=== PATIENT | male | born 1945 | race African-American/Black ===

== ENCOUNTER 2018-06-13 12:45 | Inpatient (IN) | payer BC, OTHER ==
--- NOTE | 2018-06-13 13:28 | PDOC ---
History of Present Illness - General Chief Complaint: Pain Stated Complaint: ABDOMINAL PAIN Time Seen by Provider: 06/13/18 13:10 - History of Present Illness Initial Comments: Trent Camejo is a 72yo man with a PMH of DM, CAD s/p stents, Parkinsons, and previously diagnosed umbilical hernia who presents with a "flare up" of his hernia, abdominal pain, constipation for one week, and now vomiting for 2 days. He reports that he was diagnosed with the hernia and told that he needed surgery "a long time ago" but the surgeon "never scheduled the surgery." He did not follow up as the hernia went back down. However, it has been visible for over a week now, and Mr Camejo reports that he has not had a BM for the past week. He usually has a bowel movement daily. He also endorses obstipation for at least a few days. At this point, he is unable to tolerate PO and has been vomiting for the past 2 days. He additionally reports pain at the hernia site, currently 8/10. Mr Camejo denies any fevers/chills, urinary symptoms, prior abdominal pain, chest pain, or SOB. 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 Past History - Past Medical History Allergies/Adverse Reactions: Allergies Allergy/AdvReac Type Severity Reaction Status Date / Time No Known Allergies Allergy Verified 06/13/18 13:00 CVA: No COPD: No Diabetes: Yes HTN: Yes Thyroid Disease: (PARKINSONS) - Immunization History Immunization Up to Date: Yes - Suicide/Smoking/Psychosocial Hx Smoking History: Never smoked Have you smoked in the past 12 months: No Information on smoking cessation initiated: No Hx Alcohol Use: No Drug/Substance Use Hx: No Review of Systems - Review of Systems Comments:: General: No fevers, no chills, no weight or appetite change, no malaise HEENT: No changes in vision, no changes in hearing, no congestion, no sore throat CV: No chest pain, no palpitations, no LE edema. h/o stents Pulm: No SOB, no cough, no wheezing GI: +vomiting, +constipation and obstipation 1 week, +umbilical hernia, +pain : No frequency, no urgency, no dysuria Musc: No back pain, no joint swelling, no recent injury Skin: No rash, no lesions, no erythema Endo: No excessive thirst, no heat/cold intolerance. h/o DM Heme: No unusual bruising or bleeding, no swollen glands Neuro: No syncope, no numbness/tingling, no focal weakness. h/o Parkinsons Vasc: No claudication Psych: No recent change in mood, no SI or HI *Physical Exam - Vital Signs Last Vital Signs Temp Pulse Resp BP Pulse Ox 79 18 146/90 100 06/13/18 12:55 06/13/18 12:55 06/13/18 12:55 06/13/18 13:00 - Physical Exam Comments: General: Comfortable, no acute distress HEENT: PERRL, EOMI, MMM, voice normal, normal neck ROM, no LAD Cards: RRR, no murmur appreciated Pulm: Comfortable on room air, clear to auscultation bilaterally Abd: Soft, non-distended. Midline hernia 3x3cm ~2-3cm superior to umbilicus, warm to touch, TTP. Mild LLQ pain. +BS Ext: Atraumatic. No LE edema. ROM intact. Strength 5/5 and equal bilaterally Vasc: Extremities WWP. Skin: Normal color, no rashes or lesions Neuro: A&Ox3, CN grossly intact, normal speech, motor/sensory grossly intact and symmetric Psych: Mood appropriate to situation Moderate Sedation - Procedure Monitoring Vital Signs: Procedure Monitoring Vital Signs Temperature Pulse Rate 79 06/13/18 12:55 Respiratory Rate 18 06/13/18 12:55 Blood Pressure 146/90 06/13/18 12:55 O2 Sat by Pulse Oximetry (%) 100 06/13/18 13:00 ED Treatment Course - LABORATORY CBC & Chemistry Diagram: 06/13/18 13:37 06/13/18 13:37 - RADIOLOGY Radiology Studies Ordered: Category Date Time Status ABDOMEN & PELVIS CT WITH CONTR [CT] Stat CT Scan 06/13/18 13:21 Ordered CHEST X-RAY PORTABLE* [RAD] Stat Radiology 06/13/18 13:19 Ordered Medical Decision Making - Medical Decision Making 06/13/18 13:22 Trent Camejo is a 72yo man with a PMH of DM, CAD s/p 2x stents, Parkinsons, and known umbilical hernia who presents to the ED with non-reducible hernia with constipation/obstipation for one week and vomiting with inability to tolerate PO for 2 days. The hernia is visible, warm, and TTP concerning for incarceration. - Will make attempt to reduce again at bedside w/ Dr Bingham - CBC, CMP, mag, phos. Coags and type&screen, EKG, CXR for possible OR - CT w/ IV contrast for evaluation of the hernia 06/13/18 14:38 - Labs notable for hgb 17.6. Multiple electrolyte abnormalities: Na 134, K 2.8, Cl 88, bicarb 33, BUN/Cr 47/1.9 - 40mEq potassium IV ordered - Additional 1L NS ordered for hyponatremia, hypochloremia, likely dehydration given elevated BUN and Cr - CT abd/pelvis changed to non-contrast 06/13/18 15:41 - Spoke to Dr Infante regarding surgical repair. Recommends admission, NGT, lactate. Will need cardiology evaluation given CAD - NPO - Microblog for hospital admission 06/13/18 16:10 - Spoke to Dr Prater, will accept for admission - NGT being transported from [facility], will place when available - Ancef Q8hr ordered per Dr Infante 06/13/18 17:32 - NGT placed at bedside, one attempt. Tolerated well. 500cc of grossly bilious output immediately after placement - Xray ordered to confirm NGT placement Discussed with Dr Bingham. Valerie Mohr PGY1 *DC/Admit/Observation/Transfer Diagnosis at time of Disposition: Umbilical hernia with obstruction - Discharge Dispostion Decision to Admit order: Yes - Referrals - Patient Instructions - Post Discharge Activity
[2018-06-13] MEDS ORDERED: ACETAMINOPHEN 1000 MG/100 ML VIAL (NON FORMULARY) IVPB ONE (13:39)
[2018-06-13] MEDS ORDERED: SODIUM CHLORIDE 0.9% 500 ML INFUS.BAG IV ONE ×2 (13:39→14:36)
[2018-06-13 13:45] LABS: BASO % 0.4 % (0-2.0); EOS % 0.2 % (0-4.5); HEMATOCRIT 51.6 % (35.4-49); HEMOGLOBIN 17.6 GM/dL (11.7-16.9); MCH 28.7 pg (25.7-33.7); MEAN CELL VOLUME 84.3 fl (80-96); MEAN PLT VOLUME 8.8 fl (7.5-11.1); NEUT % 65.4 % (42.8-82.8); PLATELET COUNT 172 K/MM3 (134-434); RBC 6.13 M/mm3 (4.00-5.60); WHITE BLOOD COUNT 6.8 K/mm3 (4.0-10.0)
--- NOTE | 2018-06-13 13:47 | PDOC ---
Attending Attestation - Resident Resident Name: FaniValerie - ED Attending Attestation I have performed the following: I have examined & evaluated the patient, The case was reviewed & discussed with the resident, I agree w/resident's findings & plan, Exceptions are as noted - HPI HPI: 06/13/18 16:25 This patient is a 72 year old male with PMHx of Parkinsons Disease, umbilical hernia (>10 yrs), who presents with 1 week of gradually worsening nausea, vomiting, and abdominal pain. Patient states that his abdominal pain is around his hernia. He states that he has been nauseous and vomiting for the past week. He states that he hasnt been able to hold down and food or liquid. He states that he would have come in sooner but he was waiting for his insurance to kick in. Patient also states that he has been unable to pass gas or have a BM for the past few days. He denies any recent fever, chills, chest pain, difficulty breathing, dysuria, back, any new numbness or tingling. PCP: Crispin Ames - Physicial Exam PE: 06/13/18 16:25 GENERAL: The patient is awake, alert, and fully oriented, Nontoxic - in no acute distress. HEAD: Normocephalic, atraumatic. LUNGS: Breath sounds equal, clear to auscultation bilaterally. No wheezes, no rhonchi, no rales. HEART: Regular rate and rhythm, normal S1 and S2 without murmur, rub or gallop. ABDOMEN: mild RUQ tenderness, soft tender mass on perimbulical region, no rebound/guarding, non typnantic, nondistended. no cva tenderness EXTREMITIES: Normal range of motion, edema. NEUROLOGICAL: No facial assymetry, Normal speech, Moving all 4 extremities spontaneously and symmetically PSYCH: Normal mood, normal affect. SKIN: Warm, Dry, normal turgor, - Medical Decision Making 06/13/18 13:41 72y M presents with 1 week of abd pain associated ith vomiting, no bm/gas in the past few days. on exam pt has a irreducible mass on the mid abdomen that is slightly tender to palpation. mild ttp to RUQ ddx - incarcerated hernia, gb disease will ck labs, ct abdomen ivf, zofran, analgesia will reassess A portion of this note was documented by scribe services under my direction. I have reviewed the details of the note, within reason, and agree with the documentation with the following case summary and management plan written by me 06/13/18 17:[address] c/w proximal small bowel onbstruciton will consult surgery and admit pt will place NGT as pt had some furthe rvomiting
[2018-06-13] MEDS ORDERED: ACETAMINOPHEN INJECTION 100 ML IVPB ONE (13:48)
[2018-06-13 13:58] LABS: INR 1.08 (0.83-1.09); PROTHROMBIN TIME (PATIENT) 12.8 SEC (9.7-13.0)
[2018-06-13 14:00] LABS: ACTIVATED PTT 31.9 SECONDS (25.2-36.5)
[2018-06-13 14:06] LABS: ALBUMIN 4.6 g/dl (3.4-5.0); ALK PHOS 92 U/L (45-117); ANION GAP 13 MMOL/L (8-16); BILIRUBIN,TOTAL 4.6 mg/dL (0.2-1); BLOOD UREA NITROGEN 47 mg/dL (7-18); CALCIUM 9.4 mg/dL (8.5-10.1); CHLORIDE 88 mmol/L (98-107); CO2 33 mmol/L (21-32); CREATININE 1.9 mg/dL (0.55-1.3); GLUCOSE,RANDOM 127 mg/dL (74-106); MAGNESIUM 2.5 mg/dL (1.8-2.4); PHOSPHOROUS 3.6 mg/dL (2.5-4.9); SGOT/AST 20 U/L (15-37); SGPT/ALT 22 U/L (13-61); SODIUM 134 mmol/L (136-145); TOT PROT 8.9 g/dl (6.4-8.2)
[2018-06-13 14:07] LABS: POTASSIUM 2.8 mmol/L (3.5-5.1)
[2018-06-13] MEDS ORDERED: POTASSIUM CHLORIDE 20 MEQ PREMIX IVPB 100 ML IVPB ONE ×2 (14:15→14:21)
[2018-06-13] MEDS ORDERED: KCL 10 MEQ IVPB 30 MEQ/300 ML INFUS.BAG IVPB ONE (15:00)
[2018-06-13] MEDS: KCL 10 MEQ IVPB 10 MEQ/100 ML INFUS.BAG IVPB SCH ×3 (15:19→17:21)
[2018-06-13] MEDS ORDERED: CEFAZOLIN 1 GM/D5W 1 GM/50 ML BAG ONE (16:20)
[2018-06-13] MEDS ORDERED: LIDOCAINE VISCOUS 2% ORAL/TOP 20 ML UNIT-DOSE CUP MM ONE (16:46)
[2018-06-13] MEDS: CEFAZOLIN 1 GM in DEXTROSE 5%-WATER - 50 ML IVPB SCH ×2 (16:48→19:03)
[2018-06-13] MEDS ORDERED: LIDOCAINE VISCOUS 2% ORAL/TOP 20 ML UNIT-DOSE CUP ONE (16:48)
[2018-06-13] MEDS ORDERED: ONDANSETRON 4 MG/2 ML VIAL IVPUSH PRN (17:06)
[2018-06-13] MEDS ORDERED: MORPHINE SULFATE 2 MG/ML VIAL IVPUSH PRN (17:06)
--- NOTE | 2018-06-13 17:13 | CON.CARD ---
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 Also PMH of Parkinsons, htn, dm (well controlled). Ambulates unlimited distances. No chest pain, dyspnea or edema. Reports compliance with medications. Has umbilical hernia with obstruction and with few days of vomiting and not passing stool Takes ASA and [id number] in addition to Imdur 30, Metoprolol XL 100, lisinopril 10qd and Lipitor 40 Echo 10/2017 Small region of apical akinesis. Apical inferior wall akinesis. Mild septal hypokinesis. Paradoxical septal motion. Mildly decreased left ventricular ejection fraction. MD Estimated Parameters Ejection Fraction: 50.0 % - History Source History Provided By: Patient Limitations to Obtaining History: No Limitations - Alcohol/Substance Use Hx Alcohol Use: No - Smoking History Smoking history: Never smoked Have you smoked in the past 12 months: No Home Medications - Allergies Allergies/Adverse Reactions: Allergies Allergy/AdvReac Type Severity Reaction Status Date / Time No Known Allergies Allergy Verified 06/13/18 13:00 Review of Systems - Review of Systems Constitutional: reports: No Symptoms Eyes: reports: No Symptoms HENT: reports: No Symptoms Neck: reports: No Symptoms Cardiovascular: reports: No Symptoms. denies: Chest Pain, Edema, Palpitations, Shortness of Breath Respiratory: reports: No Symptoms. denies: Cough, Exercise Intolerance Gastrointestinal: reports: Abdominal Pain, Bloating, Constipation, Vomiting Genitourinary: reports: No Symptoms Breasts: reports: No Symptoms Reported Vital Signs: Vital Signs Temperature Pulse Rate 79 06/13/18 12:55 Respiratory Rate 18 06/13/18 12:55 Blood Pressure 146/90 06/13/18 12:55 O2 Sat by Pulse Oximetry (%) 100 06/13/18 13:00 Constitutional: Yes: Well Nourished, No Distress, Calm Eyes: Yes: Conjunctiva Clear, EOM Intact HENT: Yes: Atraumatic, Normocephalic Neck: Yes: Supple, Trachea Midline Respiratory: Yes: Regular, CTA Bilaterally Gastrointestinal: Yes: Normal Bowel Sounds, Distention, Tenderness Cardiovascular: Yes: Regular Rate and Rhythm JVD: No Carotid Bruit: No PMI: Non-Displaced Heart Sounds: Yes: S1, S2 Edema: No - Other Data Labs, Other Data: CBC, BMP 06/13/18 13:37 06/13/18 13:37 INR, PTT INR 1.08 (0.83-1.09) 06/13/18 13:37 Likely limb lead reversal, NSR with prolonged QT interval and anteroseptal ischemai (anteroseptal changes are not new) Imaging - Results Cat Scan: Report Reviewed Problem List - Problems (1) CAD (coronary artery disease) Code(s): I25.10 - ATHSCL HEART DISEASE OF [place] CORONARY ARTERY W/O ANG PCTRS (2) Umbilical hernia with obstruction Code(s): K42.0 - UMBILICAL HERNIA WITH OBSTRUCTION, WITHOUT GANGRENE Assessment/Plan 72 M 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 Also PMH of Parkinsons, htn, dm (well controlled). Ambulates unlimited distances. No chest pain, dyspnea or edema. Reports compliance with medications. Has umbilical hernia with obstruction * Received 6 months of DAPT, given possible need for operation will advise stopping for now. Resume Brelinta and ASA when cleared by surgery. * The patient has stable CAD and no angina or heart failure. Has significantly prolonged QT interval likely due to electrolyte imbalance which is being corrected. * Will likely be NPO and unable to take oral meds. * Metoprolol 2.5mg IV if needed for severe HTN * Please repeat ECG (limb lead reversal) * If possible, would correct electrolyte imbalance and DEMETRIO prior to proceeding with OR. The patient is at moderate risk for operation given ID and stent in 2018. No further cardiac testing is advised at this time.
--- NOTE | 2018-06-13 17:14 | HP ---
Admitting History and Physical - Primary Care Physician PCP: Sharad Ames - Admission Chief Complaint: I'm in pain History of Present Illness: Mr Camejo is a 72 year old male who comes in complaining of 1 week of abdominal pain. He says he has a history of a hernia and it was supposed to be fixed, however it was never scheduled. He says 1 week ago he started having severe pain in his lower abdomen. It was constant, non-radiating, aching in nature, and 8/10. He could not eat or drink secondary to the pain. His last bowel movement was 1 week ago. He says he has been nauseated and throwing up brown emesis. He denies blood or coffee grounds. He says he has been feeling feverish and having chills with it. He has lightheadedness but denies passing out. He denies chest pain or pressure, shortness of breath, difficulty or pain on urination, or swelling. He says he is still in a severe amount of pain currently. History Source: Patient Limitations to Obtaining History: No Limitations - Past Medical History [employer]: Yes: Parkinson's Cardiovascular: Yes: CAD, HTN Endocrine: Yes: Diabetes Mellitus - Past Surgical History Past Surgical History: Yes: Stent (x2) - Smoking History Smoking history: Never smoked Have you smoked in the past 12 months: No - Alcohol/Substance Use Hx Alcohol Use: No History of Substance Use: reports: None - Social History ADL: Independent History of Recent Travel: No Home Medications - Allergies Allergies/Adverse Reactions: Allergies Allergy/AdvReac Type Severity Reaction Status Date / Time No Known Allergies Allergy Verified 06/13/18 13:00 - Home Medications Home Medications (free text): 1. Aspirin 81mg daily. 2. Brilinta 90mg daily. 3. Imdur 30mg daily. 4. Toprol XL 100mg daily. 5. Lisinopril 10mg daily. 6. Lipitor 40mg qhs Family Disease History - Family Disease History Family Disease History: Diabetes: Sister, Heart Disease: Mother, CA: Sister Review of Systems Findings/Remarks: Full review of systems obtained, as per HPI and otherwise negative Physical Examination Vital Signs: Vital Signs Temperature Pulse Rate 79 06/13/18 12:55 Respiratory Rate 18 06/13/18 12:55 Blood Pressure 146/90 06/13/18 12:55 O2 Sat by Pulse Oximetry (%) 100 06/13/18 13:00 Constitutional: Yes: Well Nourished, No Distress, Calm Eyes: Yes: Conjunctiva Clear, EOM Intact, PERRL HENT: Yes: Atraumatic, Normocephalic Cardiovascular: Yes: Regular Rate and Rhythm, Murmur. No: Gallop, Rub Respiratory: Yes: Regular, CTA Bilaterally. No: Rales, Rhonchi, Wheezes Gastrointestinal: Yes: Soft, Distention, Hypoactive Bowel Sounds, Tenderness. No: Normal Bowel Sounds Extremities: Yes: WNL Edema: No Labs: CBC, BMP 06/13/18 13:37 06/13/18 13:37 Imaging - Results Chest X-ray: Image Reviewed Cat Scan: Report Reviewed Problem List - Problems (1) Umbilical hernia with obstruction Assessment/Plan: -surgery consulted and will take to OR Code(s): K42.0 - UMBILICAL HERNIA WITH OBSTRUCTION, WITHOUT GANGRENE (2) Hypokalemia Assessment/Plan: -replacing currently -may need further replacement -monitor on telemetry Code(s): E87.6 - HYPOKALEMIA (3) DEMETRIO (acute kidney injury) Assessment/Plan: -secondary to dehydration -hydration with NS -holding lisinopril Code(s): N17.9 - ACUTE KIDNEY FAILURE, UNSPECIFIED (4) Hyperbilirubinemia Assessment/Plan: -recheck in am Code(s): E80.6 - OTHER DISORDERS OF BILIRUBIN METABOLISM (5) HTN (hypertension) Assessment/Plan: -may need IV metoprolol while npo -normally on imdur, toprol xl, and lisinopril Code(s): I10 - ESSENTIAL (PRIMARY) HYPERTENSION (6) Diabetes Assessment/Plan: -diabetic diet when safe to eat -cover with SSI when diet advanced Code(s): E11.9 - TYPE 2 DIABETES MELLITUS WITHOUT COMPLICATIONS (7) Parkinsons disease Assessment/Plan: -will need to obtain medications Code(s): G20 - PARKINSON'S DISEASE (8) CAD (coronary artery disease) Assessment/Plan: -appreciate cardiology assistance and note reviewed Code(s): I25.10 - ATHSCL HEART DISEASE OF [place] CORONARY ARTERY W/O ANG PCTRS
[2018-06-13] MEDS ORDERED: D5-1/2NS+40 MEQ KCL - 40 MEQ/1,000 ML INFUS.BAG IV SCH (17:15)
[2018-06-13] MEDS: SODIUM CHLORIDE 1,000 ML IV SCH (17:21)
[2018-06-14] MEDS ORDERED: hydrALAZINE HCL 20 MG/ML VIAL IVPUSH ONE (00:51)
[2018-06-14] MEDS ORDERED: hydrALAZINE HCL 20 MG/ML VIAL IVPB ONE (00:54)
[2018-06-14] MEDS: SODIUM CHLORIDE 1,000 ML IV SCH (01:29)
[2018-06-14] MEDS ORDERED: CEFAZOLIN 1 GM/D5W 1 GM/50 ML BAG IVPB SCH (03:08)
[2018-06-14] MEDS: CEFAZOLIN 1 GM in DEXTROSE 5%-WATER - 50 ML IVPB SCH (03:24)
[2018-06-14] MEDS: CEFAZOLIN 1 GM/D5W 1 GM/50 ML BAG IVPB SCH ×4 (04:15→19:24)
[2018-06-14 08:02] LABS: BASO % 0.2 % (0-2.0); EOS % 0.5 % (0-4.5); HEMATOCRIT 44.6 % (35.4-49); HEMOGLOBIN 15.1 GM/dL (11.7-16.9); LYMPH % 17.6 % (8-40); MCH 28.8 pg (25.7-33.7); MCHC 33.8 g/dl (32.0-35.9); MEAN CELL VOLUME 85.1 fl (80-96); MEAN PLT VOLUME 8.5 fl (7.5-11.1); MONO % 15.7 % (3.8-10.2); PLATELET COUNT 123 K/MM3 (134-434); RBC 5.23 M/mm3 (4.00-5.60); RDW 14.9 % (11.9-15.9); WHITE BLOOD COUNT 6.5 K/mm3 (4.0-10.0)
[2018-06-14 08:40] LABS: ALBUMIN 3.5 g/dl (3.4-5.0); ALK PHOS 73 U/L (45-117); ANION GAP 10 MMOL/L (8-16); BILIRUBIN,TOTAL 2.9 mg/dL (0.2-1); BLOOD UREA NITROGEN 29 mg/dL (7-18); CALCIUM 8.2 mg/dL (8.5-10.1); CHLORIDE 100 mmol/L (98-107); CO2 31 mmol/L (21-32); CREATININE 1.1 mg/dL (0.55-1.3); GLUCOSE,RANDOM 97 mg/dL (74-106); MAGNESIUM 2.5 mg/dL (1.8-2.4); PHOSPHOROUS 2.3 mg/dL (2.5-4.9); SGOT/AST 16 U/L (15-37); SGPT/ALT 18 U/L (13-61); SODIUM 140 mmol/L (136-145); TOT PROT 6.9 g/dl (6.4-8.2)
[2018-06-14 08:51] LABS: POTASSIUM 2.8 mmol/L (3.5-5.1)
--- NOTE | 2018-06-14 10:03 | CONSULT ---
- Consultation REQUESTING PROVIDER: CONSULT REQUEST: We have been asked to surgically evaluate this patient for SBO and incarcerated periumbilical hernia PCP:Aquilino Prater MD HISTORY OF PRESENT ILLNESS: 72yo M presented to the ED with complaint of periumbilical pain with associated n/v x 3 days. Pt states that he has a history of a hernia above his umbilicus but never had it repaired. Pt denies BM or flatus. Denies fever, chills. Currently has NG tube in place since yesterday states that his umbilical pain has improved, but he continues to have swelling over his hernia. PMHx: CAD w/ ND and stents, HLD, HTN Home Medications Medication Instructions Recorded Aspirin 81 mg PO DAILY 06/13/18 Atorvastatin Ca [Lipitor] 40 mg PO HS 06/13/18 Isosorbide Mononitrate [Imdur -] 30 mg PO DAILY 06/13/18 Lisinopril 10 mg PO DAILY 06/13/18 Metoprolol Succinate [Toprol Xl] 100 mg PO TID 06/13/18 Ticagrelor [Brilinta] 90 mg PO BID 06/13/18 Allergies Allergy/AdvReac Type Severity Reaction Status Date / Time No Known Allergies Allergy Verified 06/13/18 13:00 PHYSICAL EXAM: GENERAL: Awake, alert, and fully oriented, in no acute distress. HEAD: Normal with no signs of trauma. EYES: PERRL, sclera anicteric, conjunctiva clear. NECK: Normal ROM LUNGS: Clear to auscultation bilat anteriorly. No wheezes, and no crackles. No accessory muscle use. HEART: Regular rate and rhythm. ABDOMEN: Soft, mild tenderness, not distended, swelling superior to umbilicus mildly tender, no guarding, no rebound, no masses. No organomegaly. MUSCULOSKELETAL: Normal ROM at all joints. No bony deformities or tenderness. No CVA tenderness. LOWER EXTREMITIES: No peripheral edema. NEUROLOGICAL: Normal speech, gait not observed. PSYCH: Cooperative. Good eye contact. Appropriate mood and affect. SKIN: Warm, dry, normal turgor, no rashes or lesions noted. Vital Signs Temperature 98.8 F 06/14/18 07:00 Pulse Rate 75 06/14/18 07:00 Respiratory Rate 20 06/14/18 07:00 Blood Pressure 151/72 06/14/18 07:00 O2 Sat by Pulse Oximetry (%) 97 06/13/18 23:54 Lab Results WBC 6.5 K/mm3 (4.0-10.0) 06/14/18 06:30 RBC 5.23 M/mm3 (4.00-5.60) 06/14/18 06:30 Hgb 15.1 GM/dL (11.7-16.9) 06/14/18 06:30 Hct 44.6 % (35.4-49) 06/14/18 06:30 MCV 85.1 fl (80-96) 06/14/18 06:30 MCHC 33.8 g/dl (32.0-35.9) 06/14/18 06:30 RDW 14.9 % (11.9-15.9) 06/14/18 06:30 Plt Count 123 K/MM3 (134-434) L D 06/14/18 06:30 Sodium 140 mmol/L (136-145) 06/14/18 06:00 Potassium 2.8 mmol/L (3.5-5.1) L* 06/14/18 06:00 Chloride 100 mmol/L (98-107) 06/14/18 06:00 Carbon Dioxide 31 mmol/L (21-32) 06/14/18 06:00 Anion Gap 10 MMOL/L (8-16) 06/14/18 06:00 BUN 29 mg/dL (7-18) H 06/14/18 06:00 Creatinine 1.1 mg/dL (0.55-1.3) 06/14/18 06:00 Random Glucose 97 mg/dL (74-106) 06/14/18 06:00 Calcium 8.2 mg/dL (8.5-10.1) L 06/14/18 06:00 Blood Type O POSITIVE 06/13/18 15:37 Antibody Screen Negative 06/13/18 13:37 INR 1.08 (0.83-1.09) 06/13/18 13:37 Problem List - Problems (1) Umbilical hernia with obstruction Assessment/Plan: Plan -plan to go to OR today for reduction and repair of periumbilical hernia -pt has hypokalemia, k riders order, will recheck after given -NPO, NGT -GI ppx Code(s): K42.0 - UMBILICAL HERNIA WITH OBSTRUCTION, WITHOUT GANGRENE
[2018-06-14] MEDS: KCL 10 MEQ IVPB 10 MEQ/100 ML INFUS.BAG IVPB SCH ×7 (10:15→23:18)
--- NOTE | 2018-06-14 10:57 | EKG ---
Test Reason : Blood Pressure : / mmHG Vent. Rate : 065 BPM Atrial Rate : 065 BPM P-R Int : 140 ms QRS Dur : 102 ms QT Int : 520 ms P-R-T Axes : 142 117 139 degrees QTc Int : 540 ms SUSPECT ARM LEAD REVERSAL, INTERPRETATION ASSUMES NO REVERSAL UNUSUAL P AXIS, POSSIBLE ECTOPIC ATRIAL RHYTHM RIGHT AXIS DEVIATION PROLONGED QT ABNORMAL ECG NO PREVIOUS ECGS AVAILABLE Confirmed by JACINDA ALEXANDER MD ([id number]) on 06/14/2018 10:57:26 AM Referred By: Confirmed By:JACINDA ALEXANDER MD
--- NOTE | 2018-06-14 11:25 | PN ---
Progress Note, Physician Chief Complaint: Mr Camejo says he is still having abdominal pain but it is improved with NGT placement. No cp, sob, n/v. - Current Medication List Current Medications: Active Medications Sodium Chloride (Normal Saline -) 1,000 mls @ 50 mls/hr IV ASDIR EJFF Stop: 06/14/18 17:13 Last Admin: 06/14/18 01:29 Dose: 50 mls/hr Cefazolin Sodium (Ancef 1 Gm Premixed Ivpb -) 1 gm in 50 mls @ 100 mls/hr IVPB Q8H-IV JEFF Last Admin: 06/14/18 09:03 Dose: 100 mls/hr Potassium Chloride (Potassium Chloride 10 Meq Premix Ivpb -) 10 meq in 100 mls @ 100 mls/hr IVPB Q60M JEFF Stop: 06/14/18 13:14 Last Admin: 06/14/18 10:15 Dose: 100 mls/hr Metoprolol Tartrate (Lopressor Injection -) 5 mg IVPUSH Q6H JEFF Morphine Sulfate (Morphine Sulfate) 1 mg IVPUSH Q4H PRN PRN Reason: PAIN LEVEL 6-10 - Objective Vital Signs: Vital Signs Temperature 37.2 C 06/14/18 10:00 Pulse Rate 71 06/14/18 10:00 Respiratory Rate 18 06/14/18 10:00 Blood Pressure 173/80 H 06/14/18 10:00 O2 Sat by Pulse Oximetry (%) 97 06/13/18 23:54 Constitutional: Yes: Well Nourished, No Distress, Calm Cardiovascular: Yes: Regular Rate and Rhythm. No: Gallop, Murmur, Rub Respiratory: Yes: Regular, CTA Bilaterally. No: Rales, Rhonchi, Wheezes Gastrointestinal: Yes: Distention, Hypoactive Bowel Sounds, Tenderness. No: Normal Bowel Sounds, Soft Extremities: Yes: WNL Edema: No Labs: CBC, BMP 06/14/18 06:30 06/14/18 06:00 INR, PTT INR 1.08 (0.83-1.09) 06/13/18 13:37 Problem List - Problems (1) Umbilical hernia with obstruction Code(s): K42.0 - UMBILICAL HERNIA WITH OBSTRUCTION, WITHOUT GANGRENE (2) Hypokalemia Code(s): E87.6 - HYPOKALEMIA (3) DEMETRIO (acute kidney injury) Code(s): N17.9 - ACUTE KIDNEY FAILURE, UNSPECIFIED (4) Hyperbilirubinemia Code(s): E80.6 - OTHER DISORDERS OF BILIRUBIN METABOLISM (5) HTN (hypertension) Code(s): I10 - ESSENTIAL (PRIMARY) HYPERTENSION (6) Diabetes Code(s): E11.9 - TYPE 2 DIABETES MELLITUS WITHOUT COMPLICATIONS (7) Parkinsons disease Code(s): G20 - PARKINSON'S DISEASE (8) CAD (coronary artery disease) Code(s): I25.10 - ATHSCL HEART DISEASE OF [place] CORONARY ARTERY W/O ANG PCTRS Assessment/Plan (1) Umbilical hernia with obstruction Assessment/Plan: -surgery consulted and will take to OR once medically stable Code(s): K42.0 - UMBILICAL HERNIA WITH OBSTRUCTION, WITHOUT GANGRENE (2) Hypokalemia Assessment/Plan: -still low today secondary to loss of gastric content -transfer to telemetry -replace -recheck potassium today at 1600 for further replacement Code(s): E87.6 - HYPOKALEMIA (3) DEMETRIO (acute kidney injury) Assessment/Plan: -resolved with IVF -continue to hold lisinopril Code(s): N17.9 - ACUTE KIDNEY FAILURE, UNSPECIFIED (4) Hyperbilirubinemia Assessment/Plan: -improving with hydration Code(s): E80.6 - OTHER DISORDERS OF BILIRUBIN METABOLISM (5) HTN (hypertension) Assessment/Plan: -metoprolol 5mg IV q6h, hold for SBP less than 110 or HR less than 60 -normally on imdur, toprol xl, and lisinopril Code(s): I10 - ESSENTIAL (PRIMARY) HYPERTENSION (6) Diabetes Assessment/Plan: -FSBS q6h with SSI -may need to be placed on D5 1/2NS with KCl Code(s): E11.9 - TYPE 2 DIABETES MELLITUS WITHOUT COMPLICATIONS (7) Parkinsons disease Assessment/Plan: -holding medications currently Code(s): G20 - PARKINSON'S DISEASE (8) CAD (coronary artery disease) Assessment/Plan: -appreciate cardiology assistance and note reviewed Code(s): I25.10 - ATHSCL HEART DISEASE OF [place] CORONARY ARTERY W/O ANG PCTRS
[2018-06-14] MEDS: INSULIN SLIDING SCALE (NOVOLOG) 1 VIAL SQ SCH ×3 (12:29→21:49)
[2018-06-14] MEDS ORDERED: METOPROLOL TARTRATE 5 MG/5 ML VIAL IVPUSH SCH (15:00)
--- NOTE | 2018-06-14 15:54 | PN ---
Progress Note, Physician History of Present Illness: seen and examined today in nad. NG tube in place. awaiting surgery. - Current Medication List Current Medications: Active Medications Sodium Chloride (Normal Saline -) 1,000 mls @ 50 mls/hr IV ASDIR JEFF Stop: 06/14/18 17:13 Last Admin: 06/14/18 01:29 Dose: 50 mls/hr Cefazolin Sodium (Ancef 1 Gm Premixed Ivpb -) 1 gm in 50 mls @ 100 mls/hr IVPB Q8H-IV JEFF Last Admin: 06/14/18 09:03 Dose: 100 mls/hr Insulin Aspart (Novolog Vial Sliding Scale -) 1 vial SQ Q6HPO JEFF; Protocol Last Admin: 06/14/18 12:29 Dose: Not Given Metoprolol Tartrate (Lopressor Injection -) 5 mg IVPUSH Q6H-IV JEFF Morphine Sulfate (Morphine Sulfate) 1 mg IVPUSH Q4H PRN PRN Reason: PAIN LEVEL 6-10 - Objective Vital Signs: Vital Signs Temperature 98.0 F 06/14/18 14:57 Pulse Rate 74 06/14/18 14:57 Respiratory Rate 18 06/14/18 14:57 Blood Pressure 161/85 06/14/18 14:57 O2 Sat by Pulse Oximetry (%) 97 06/13/18 23:54 Constitutional: Yes: No Distress, Calm Eyes: Yes: Conjunctiva Clear, EOM Intact HENT: Yes: Atraumatic, Normocephalic Cardiovascular: Yes: Regular Rate and Rhythm, S1, S2. No: Bradycardia, Tachycardia, Pulse Irregular, Bruit, JVD, Gallop, Murmur, Rub, S3, S4, Varicosities Respiratory: Yes: Regular, CTA Bilaterally. 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 Also PMH of Parkinsons, htn, dm (well controlled). Ambulates unlimited distances. No chest pain, dyspnea or edema. Reports compliance with medications. Has umbilical hernia with obstruction and with few days of vomiting and not passing stool Takes ASA and [id number] in addition to Imdur 30, Metoprolol XL 100, lisinopril 10qd and Lipitor 40 Echo 10/2017 Small region of apical akinesis. Apical inferior wall akinesis. Mild septal hypokinesis. Paradoxical septal motion. Mildly decreased left ventricular ejection fraction. MD Estimated Parameters Ejection Fraction: 50.0 % Preop cardiovascular evaluation -no significant cardiac change since yesterdays evaluation -DAPT on hold to be resumed when cleared by surgery -NG tube in place and not tolerating po meds thus on IV Metoprolol for HTN -resume po meds when tolerated -K+ being supplemented and pt is being moved to tele until K corrected -remains asymptomatic cardiac l[place], no angina or signs of CHF
[2018-06-14 16:43] LABS: ANION GAP 9 MMOL/L (8-16); BLOOD UREA NITROGEN 24 mg/dL (7-18); CALCIUM 8.3 mg/dL (8.5-10.1); CHLORIDE 101 mmol/L (98-107); CO2 33 mmol/L (21-32); CREATININE 1.1 mg/dL (0.55-1.3); GLUCOSE,RANDOM 86 mg/dL (74-106); POTASSIUM 3.3 mmol/L (3.5-5.1); SODIUM 143 mmol/L (136-145)
[2018-06-14] MEDS ORDERED: BUPIVACAINE HCL/PF 0.5% (5MG/ML) 10 ML VIAL ONE (18:19)
[2018-06-14] MEDS ORDERED: PROPOFOL 20 ML ONE (18:23)
[2018-06-14] MEDS ORDERED: SUCCINYLCHOLINE CHLORIDE 200 MG/10 ML VIAL ONE (18:23)
[2018-06-14] MEDS ORDERED: ROCURONIUM BROMIDE 50 MG/5 ML VIAL ONE (18:23)
[2018-06-14] MEDS ORDERED: ePHEDrine SULFATE 50 MG/1 ML AMPULE ONE (18:58)
[2018-06-14] MEDS ORDERED: ceFAZolin SODIUM 1 GM VIAL ONE (18:58)
[2018-06-14] MEDS ORDERED: ceFAZolin SODIUM 1 GM VIAL IVPB ONE (19:00)
[2018-06-14] MEDS ORDERED: BUPIVACAINE HCL/PF (5 MG/ML) 30 ML VIAL IJ ONE (19:19)
[2018-06-14] MEDS ORDERED: GLYCOPYRROLATE 0.2 MG/1 ML VIAL ONE (19:30)
[2018-06-14] MEDS ORDERED: NEOSTIGMINE METHYLSULFATE 0.5 MG/ML - 10 ML MDV ONE (19:30)
[2018-06-14] MEDS ORDERED: METOPROLOL TARTRATE 5 MG/5 ML VIAL ONE (19:37)
[2018-06-14] MEDS ORDERED: hydrALAZINE HCL 20 MG/ML VIAL ONE (19:43)
--- NOTE | 2018-06-14 19:54 | OP ---
Operative Note - Note: Operative Date: 06/14/18 Pre-Operative Diagnosis: incarcerated supraumbilical hernia Operation: repair of incarcerated supraumbilicl hernia Surgeon: Fred Infante Pediatric Neurologist: Yarely Whyte Anesthesiologist/[employer]: Nancy Fisher Anesthesia: General Estimated Blood Loss (mls): 20 Operative Report Dictated: Yes
[2018-06-14] MEDS ORDERED: LACTATED RINGERS SOLUTION 1,000 ML IV SCH ×2 (20:00)
[2018-06-14] MEDS: LACTATED RINGERS SOLUTION 1,000 ML IV SCH (20:00)
[2018-06-14] MEDS ORDERED: LABETALOL HCL 5 MG/1 ML (100MG/20 ML VIAL) IVPUSH PRN (20:07)
[2018-06-14] MEDS ORDERED: ONDANSETRON 4 MG/2 ML VIAL IVPUSH PRN (20:07)
[2018-06-14] MEDS ORDERED: MORPHINE SULFATE 2 MG/ML VIAL IVPUSH PRN (20:09)
--- NOTE | 2018-06-14 20:11 | SURG ---
Surgery Health And Human Performance Professor Note Health And Human Performance Professor: Yarely Whyte PA-C Date of Service: 06/14/18 Diagnosis: incarcerated supraumbilical hernia Procedure: repair of supraumbilical hernia I was present for the entirety of the operative procedure. For further detail, please refer to operative report. Visit type - Case Type Case Type: ED Admission - Emergency Emergency Visit: Yes ED Registration Date: 06/13/18 Care time: The patient presented to the Emergency Department on the above date and was hospitalized for further evaluation of their emergent condition. - New patient This patient is new to me today: Yes Date on this admission: 06/14/18 - Critical Care Critical Care patient: No
[2018-06-14] MEDS: ACETAMINOPHEN 1000 MG/100 ML VIAL (NON FORMULARY) IVPB SCH (20:40)
[2018-06-14] MEDS: HEPARIN NA (PORCINE) 5,000 UNITS/ML 1ML VIAL SQ SCH (22:02)
[2018-06-15] MEDS ORDERED: INSULIN SLIDING SCALE (NOVOLOG) 1 VIAL SQ SCH
[2018-06-15] MEDS: METOPROLOL TARTRATE 5 MG/5 ML VIAL IVPUSH SCH ×2 (03:05→08:47)
[2018-06-15] MEDS: ACETAMINOPHEN 1000 MG/100 ML VIAL (NON FORMULARY) IVPB SCH ×4 (03:06→13:45)
[2018-06-15] MEDS: CEFAZOLIN 1 GM/D5W 1 GM/50 ML BAG IVPB SCH ×2 (03:29→10:09)
[2018-06-15] MEDS: INSULIN SLIDING SCALE (NOVOLOG) 1 VIAL SQ SCH ×4 (06:10→21:27)
[2018-06-15] MEDS: KCL 10 MEQ IVPB 10 MEQ/100 ML INFUS.BAG IVPB SCH ×2 (07:24→07:25)
[2018-06-15 07:42] LABS: ANION GAP 8 MMOL/L (8-16); BLOOD UREA NITROGEN 19 mg/dL (7-18); CALCIUM 8.4 mg/dL (8.5-10.1); CHLORIDE 105 mmol/L (98-107); CO2 32 mmol/L (21-32); CREATININE 1.1 mg/dL (0.55-1.3); GLUCOSE,RANDOM 76 mg/dL (74-106); MAGNESIUM 2.5 mg/dL (1.8-2.4); PHOSPHOROUS 2.6 mg/dL (2.5-4.9); POTASSIUM 3.9 mmol/L (3.5-5.1); SODIUM 145 mmol/L (136-145)
[2018-06-15 07:46] LABS: BILIRUBIN,DIRECT 0.4 mg/dL (0.0-0.2); BILIRUBIN,TOTAL 2.2 mg/dL (0.2-1); TOT PROT 6.1 g/dl (6.4-8.2)
--- NOTE | 2018-06-15 07:48 | PN ---
Progress Note (short form) - Note Progress Note: 72yo M s/p incarcerated periumbilical hernia repair POD #1, pt seen and examined at bedside. Pt states that he feels well, only complaining of mild abd pain. Pt denies nausea, NG tube in place. Denies fever, chills. Last Vital Signs Temp Pulse Resp BP Pulse Ox 98.2 F 66 19 156/77 100 06/15/18 06:00 06/15/18 06:00 06/15/18 06:00 06/15/18 06:00 06/14/18 22:14 CBC, BMP 06/15/18 05:30 PE: Gen: A&O x3 Resp: breathing comfortably Abd: soft, nondistended, mild tenderness over incision, dressing clean and intact. Ext: no edema NGT output: 175ml Problem List - Problems (1) Umbilical hernia with obstruction Assessment/Plan: Plan -pt appears much better today, would consider removing NGT today, will follow up and see output later today -encourage OOB/ambulate -GI ppx -dvt ppx Code(s): K42.0 - UMBILICAL HERNIA WITH OBSTRUCTION, WITHOUT GANGRENE
[2018-06-15 08:15] LABS: BASO % 0.3 % (0-2.0); EOS % 1.3 % (0-4.5); HEMOGLOBIN 14.2 GM/dL (11.7-16.9); MCH 28.5 pg (25.7-33.7); MEAN CELL VOLUME 86.3 fl (80-96); MEAN PLT VOLUME 8.7 fl (7.5-11.1); MONO % 16.5 % (3.8-10.2); NEUT % 64.9 % (42.8-82.8); PLATELET COUNT 125 K/MM3 (134-434); RBC 4.98 M/mm3 (4.00-5.60); RDW 14.9 % (11.9-15.9); WHITE BLOOD COUNT 6.1 K/mm3 (4.0-10.0)
[2018-06-15] MEDS ORDERED: CEFAZOLIN 1 GM/D5W 1 GM/50 ML BAG IVPB SCH (10:00)
[2018-06-15] MEDS ORDERED: PT OWN MED DRAWER 7, Y5N ONE ×2 (10:05→21:24)
[2018-06-15] MEDS: ASPIRIN 81 MG CHEWABLE TABLETS PO SCH (10:08)
[2018-06-15] MEDS: ISOSORBIDE MONONITRATE 30 MG TAB.SR.24H (FP) PO SCH (10:08)
[2018-06-15] MEDS: LISINOPRIL 10 MG TABLET (FP) PO SCH (10:08)
[2018-06-15] MEDS: TICAGRELOR 90 MG TABLET PO SCH ×2 (10:08→21:28)
[2018-06-15] MEDS: HEPARIN NA (PORCINE) 5,000 UNITS/ML 1ML VIAL SQ SCH ×2 (10:09→21:28)
--- NOTE | 2018-06-15 10:51 | PN ---
Progress Note, Physician History of Present Illness: seen and examined today in [facility]. no overnight events. no new complaints. tolerated procedure well without cardiac complications. - Current Medication List Current Medications: Active Medications Acetaminophen (Ofirmev Injection -) 1,000 mg IVPB Q6H [facility] Stop: 06/15/18 14:46 Last Admin: 06/15/18 08:49 Dose: 1,000 mg Aspirin (Asa -) 81 mg PO DAILY [facility] Last Admin: 06/15/18 10:08 Dose: 81 mg Heparin Sodium (Porcine) (Heparin -) 5,000 unit SQ BID [facility] Last Admin: 06/15/18 10:09 Dose: 5,000 unit Cefazolin Sodium (Ancef 1 Gm Premixed Ivpb -) 1 gm in 50 mls @ 100 mls/hr IVPB Q8H [facility] Stop: 06/15/18 11:29 Last Admin: 06/15/18 10:09 Dose: 100 mls/hr Lactated Ringer's (Lactated Ringers Solution) 1,000 mls @ 125 mls/hr IV ASDIR [facility] Last Admin: 06/14/18 20:00 Dose: 300 mls Insulin Aspart (Novolog Vial Sliding Scale -) 1 vial SQ ACHS [facility]; Protocol Last Admin: 06/15/18 06:10 Dose: Not Given Isosorbide Mononitrate (Imdur -) 30 mg PO DAILY [facility] Last Admin: 06/15/18 10:08 Dose: 30 mg Lisinopril (Prinivil) 10 mg PO DAILY [facility] Last Admin: 06/15/18 10:08 Dose: 10 mg Morphine Sulfate (Morphine Sulfate) 1 mg IVPUSH Q4H PRN PRN Reason: PAIN LEVEL 6-10 Last Admin: 06/15/18 05:21 Dose: 1 mg Ticagrelor (Brilinta -) 90 mg PO BID [facility] Last Admin: 06/15/18 10:08 Dose: 90 mg - Objective Vital Signs: Vital Signs Temperature 97.4 F L 06/15/18 08:48 Pulse Rate 65 06/15/18 09:35 Respiratory Rate 20 06/15/18 09:35 Blood Pressure 174/81 H 06/15/18 09:35 O2 Sat by Pulse Oximetry (%) 100 06/14/18 22:14 Constitutional: Yes: No Distress, Calm Eyes: Yes: Conjunctiva Clear, EOM Intact HENT: Yes: Atraumatic, Normocephalic Neck: Yes: Supple, Trachea Midline Cardiovascular: Yes: Regular Rate and Rhythm, S1, S2. No: Bradycardia, Tachycardia, Pulse Irregular, Bruit, JVD, Gallop, Murmur, Rub, S3, S4, Varicosities Respiratory: Yes: Regular, CTA Bilaterally. No: Rales, Rhonchi, Wheezes Gastrointestinal: Yes: Normal Bowel Sounds, Soft, Tenderness. 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 Also PMH of Parkinsons, htn, dm (well controlled). Ambulates unlimited distances. No chest pain, dyspnea or edema. Reports compliance with medications. Has umbilical hernia with obstruction and with few days of vomiting and not passing stool Takes ASA and [id number] in addition to Imdur 30, Metoprolol XL 100, lisinopril 10qd and Lipitor 40 Echo 10/2017 Small region of apical akinesis. Apical inferior wall akinesis. Mild septal hypokinesis. Paradoxical septal motion. Mildly decreased left ventricular ejection fraction. MD Estimated Parameters Ejection Fraction: 50.0 % Preop cardiovascular evaluation -pt tolerated procedure well from a cardiac standpoint -ASA and Brilinta were resumed -po meds were resumed -K+ improving -remains asymptomatic cardiac [place], no angina or signs of CHF -ok to dc tele -cont po meds for HTN and titrate as needed No additional inpatient cardiac workup needed at this time. Please call with any additional questions.
--- NOTE | 2018-06-15 12:14 | EKG ---
Test Reason : Blood Pressure : / mmHG Vent. Rate : 061 BPM Atrial Rate : 061 BPM P-R Int : 138 ms QRS Dur : 098 ms QT Int : 492 ms P-R-T Axes : 065 032 069 degrees QTc Int : 495 ms NORMAL SINUS RHYTHM T WAVE ABNORMALITY, CONSIDER ANTERIOR ISCHEMIA PROLONGED QT ABNORMAL ECG Confirmed by MD BELKYS, ABRAHAM ([id number]) on 06/15/2018 12:13:56 PM Referred By: Lien TRIVEDI Confirmed By:ABRAHAM RIZVI MD
[2018-06-15] MEDS: LACTATED RINGERS SOLUTION 1,000 ML IV SCH ×2 (13:13→21:27)
[2018-06-15] MEDS: METOPROLOL TARTRATE 50 MG TABLET (FP) PO SCH ×2 (13:14→21:26)
[2018-06-15] MEDS: CARBIDOPA/LEVODOPA 25/100 TABLET (FP) PO SCH ×2 (13:14→21:26)
--- NOTE | 2018-06-15 16:30 | PN ---
Physical Exam: SUBJECTIVE: Patient seen and examined by me at bedtime No acute events overnight S/P repair of incarcerated supraumbilical hernia POD #1 Patient reports adequate pain control States he has not passed flatus yet nor had a bowel movement Denies any fever, chills, nausea, vomiting, chest pain, palpitations, headaches , dizziness, diarrhea, constipation OBJECTIVE: Vital Signs Period Temp Pulse Resp BP Sys/Hill Pulse Ox Last 24 Hr 97.4 F-98.4 F 65-89 15-25 123-174/67-85 100-100 GENERAL: The patient is awake, alert, and oriented to person and place but not time, in no acute distress. EYES: PERRL, sclera anicteric, conjunctiva clear. ENT: Oropharynx clear without exudates, moist mucous membranes. NECK: Trachea midline, full range of motion, supple. LUNGS: CTA b/l with no wheezes, no crackles, no accessory muscle use. HEART: RRR, normal S1 and S2 without murmur, rub or gallop. ABDOMEN: Soft, mild tenderness upon palpation of mid abdomen, mildly distended, hypoactive bowel sounds EXTREMITIES: No edema. NEUROLOGICAL: Cranial nerves II through XII grossly intact. Normal speech Laboratory Results 06/15/18 05:30 06/15/18 05:30 06/15/18 06/15/18 05:30 05:30 Magnesium 2.5 H Total Bilirubin 2.2 H Direct Bilirubin 0.4 H AST 15 ALT 12 L Alkaline Phosphatase 66 Total Protein 6.1 L Albumin 3.0 L Active Medications Generic Name Dose Route Start Last Admin Trade Name Freq PRN Reason Stop Dose Admin Aspirin 81 mg 06/15/18 10:00 06/15/18 10:08 Asa - PO 81 mg DAILY JEFF Administration Carbidopa/Levodopa 1 each 06/15/18 14:00 06/15/18 13:14 Sinemet 25/100 - PO 1 each TID JEFF Administration Heparin Sodium (Porcine) 5,000 unit 06/14/18 22:00 06/15/18 10:09 Heparin - SQ 5,000 unit BID JEFF Administration Lactated Ringer's 1,000 mls @ 125 mls/hr 06/14/18 20:16 06/15/18 13:13 Lactated Ringers Solution IV 125 mls/hr ASDIR JEFF Administration Insulin Aspart 1 vial 06/14/18 20:14 06/15/18 12:12 Novolog Vial Sliding Scale - SQ Not Given ACHS [facility] Protocol Isosorbide Mononitrate 30 mg 06/15/18 10:00 06/15/18 10:08 Imdur - PO 30 mg DAILY JEFF Administration Lisinopril 10 mg 06/15/18 10:00 06/15/18 10:08 Prinivil PO 10 mg DAILY JEFF Administration Metoprolol Tartrate 50 mg 06/15/18 14:00 06/15/18 13:14 Lopressor - PO 50 mg TID [facility] Administration Morphine Sulfate 1 mg 06/14/18 20:09 06/15/18 05:21 Morphine Sulfate IVPUSH 1 mg Q4H PRN Administration PAIN LEVEL 6-10 Oxybutynin Chloride 5 mg 06/16/18 10:00 Ditropan - PO DAILY [facility] Tamsulosin HCl 0.4 mg 06/16/18 08:30 Flomax - PO DAILY@0830 [facility] Ticagrelor 90 mg 06/15/18 10:00 06/15/18 10:08 Brilinta - PO 90 mg BID [facility] Administration ASSESSMENT/PLAN: Patient is a 72 year old male who presented for one week history of abdominal pain associated with nausea and vomiting. CT done and revealed obstructed umbilical hernia. Patient admitted for further monitoring and management. Umbilical Hernia with Obstruction -S/P repair of incarcerated supraumbilical hernia POD #1 and tolerated procedure well -Continue pain control with Morphine 1mg Q4H PRN -Continue IV fluids with LR @125mls/hr -Continue to advance diet. Tolerating Liquid diet Hypokalemia -3.9 today -Continue to monitor DEMETRIO -Resolved -Continue IV fluids with LR @125mls/hr -Continue to monitor -Resume Lisinopril HTN -Continue Metoprolol 50mg po TID -Continue Lisinopril 10mg PO daily -Continue Imdur 30mg daily CAD s/p STEMI with ANNIKA to LAD -Continue ASA -Continue Brilinta 90mg BID HFiEF -Continue ASA -Continue BB -Continue LARON -Continue Brilinta 90 mg BID NIDDMII -ISS -BGM Parkinsons Disease -Continue home medication Sinemet TID BPH -Continue Flomax 0.4mg F/E/N -On no fluids -Hypokalemia. replete and repeat -Liquid diet Prophylaxis -Heparin 5000 units sq TID for DVT -No GI required Nohemi Morfin [id number] Visit type - Emergency Visit Emergency Visit: Yes ED Registration Date: 06/13/18 Care time: The patient presented to the Emergency Department on the above date and was hospitalized for further evaluation of their emergent condition. - New Patient This patient is new to me today: Yes Date on this admission: 06/15/18 - Critical Care Critical Care patient: No
--- NOTE | 2018-06-15 16:51 | PN ---
Teaching Attending Note Name of Resident: Nohemi Morfin ATTENDING PHYSICIAN STATEMENT I saw and evaluated the patient. I reviewed the resident's note and discussed the case with the resident. I agree with the resident's findings and plan as documented. SUBJECTIVE: Mr Camejo says he is feeling much better. Having some abdominal pain after surgery but much improved from before. No cp or sob. OBJECTIVE: Last Vital Signs Temp Pulse Resp BP Pulse Ox 37.4 C 65 18 157/81 100 06/15/18 18:20 06/15/18 18:20 06/15/18 18:20 06/15/18 18:20 06/15/18 09:00 Gen: nad Pulm: ctab w/o w/r/r CV: rrr w/o m/r/g Abd: hypoactive bs, s/nd, slight TTP. Incision with minimal serosanguinous drainage Ext: no c/c/e CBC, BMP 06/15/18 05:30 06/15/18 05:30 ASSESSMENT AND PLAN: (1) Umbilical hernia with obstruction Assessment/Plan: -s/p repair -no flatus currently -per surgery Code(s): K42.0 - UMBILICAL HERNIA WITH OBSTRUCTION, WITHOUT GANGRENE (2) Hypokalemia Assessment/Plan: -resolved Code(s): E87.6 - HYPOKALEMIA (3) DEMETRIO (acute kidney injury) Assessment/Plan: -resolved with IVF -lisinopril restarted Code(s): N17.9 - ACUTE KIDNEY FAILURE, UNSPECIFIED (4) Hyperbilirubinemia Assessment/Plan: -improving with hydration Code(s): E80.6 - OTHER DISORDERS OF BILIRUBIN METABOLISM (5) HTN (hypertension) Assessment/Plan: -restart imdur and lisinopril -will place on metoprolol 50mg tid, toprol xl tid is an unusual regimen Code(s): I10 - ESSENTIAL (PRIMARY) HYPERTENSION (6) Diabetes Assessment/Plan: -FSBS and SSI Code(s): E11.9 - TYPE 2 DIABETES MELLITUS WITHOUT COMPLICATIONS (7) Parkinsons disease Assessment/Plan: -restart medications Code(s): G20 - PARKINSON'S DISEASE (8) CAD (coronary artery disease) Assessment/Plan: -quiescent Code(s): I25.10 - ATHSCL HEART DISEASE OF [place] CORONARY ARTERY W/O ANG PCTRS Problem List - Problems (1) Umbilical hernia with obstruction Code(s): K42.0 - UMBILICAL HERNIA WITH OBSTRUCTION, WITHOUT GANGRENE (2) Hypokalemia Code(s): E87.6 - HYPOKALEMIA (3) DEMETRIO (acute kidney injury) Code(s): N17.9 - ACUTE KIDNEY FAILURE, UNSPECIFIED (4) Hyperbilirubinemia Code(s): E80.6 - OTHER DISORDERS OF BILIRUBIN METABOLISM (5) HTN (hypertension) Code(s): I10 - ESSENTIAL (PRIMARY) HYPERTENSION (6) Diabetes Code(s): E11.9 - TYPE 2 DIABETES MELLITUS WITHOUT COMPLICATIONS (7) Parkinsons disease Code(s): G20 - PARKINSON'S DISEASE (8) CAD (coronary artery disease) Code(s): I25.10 - ATHSCL HEART DISEASE OF [place] CORONARY ARTERY W/O ANG PCTRS
[2018-06-15 20:45] VITALS: BMI 20.6
[2018-06-16] MEDS: LACTATED RINGERS SOLUTION 1,000 ML IV SCH (06:06)
[2018-06-16] MEDS: CARBIDOPA/LEVODOPA 25/100 TABLET (FP) PO SCH ×2 (06:07→15:10)
[2018-06-16] MEDS: METOPROLOL TARTRATE 50 MG TABLET (FP) PO SCH ×2 (06:07→15:10)
[2018-06-16] MEDS: INSULIN SLIDING SCALE (NOVOLOG) 1 VIAL SQ SCH ×2 (06:18→11:19)
[2018-06-16] MEDS ORDERED: ACETAMINOPHEN 325 MG TABLET (FP) PO PRN (08:24)
[2018-06-16 08:30] LABS: HEMATOCRIT 40.7 % (35.4-49); HEMOGLOBIN 13.5 GM/dL (11.7-16.9); MCH 28.6 pg (25.7-33.7); MCHC 33.1 g/dl (32.0-35.9); MEAN CELL VOLUME 86.3 fl (80-96); MEAN PLT VOLUME 8.9 fl (7.5-11.1); PLATELET COUNT 152 K/MM3 (134-434); RBC 4.72 M/mm3 (4.00-5.60); RDW 14.7 % (11.9-15.9); WHITE BLOOD COUNT 6.2 K/mm3 (4.0-10.0)
[2018-06-16] MEDS ORDERED: TAMSULOSIN HCL 0.4 MG CAP PO SCH (08:30)
--- NOTE | 2018-06-16 09:08 | PN ---
Progress Note (short form) - Note Progress Note: POD 2, s/p repair of incarcerated supraumbilical hernia Pt seen and examined. States he is feeling well. Requesting to go home. Has been oob without issue. Tolerating PO. Has had 3 BMs. Voiding without issue. No complaints. Denies cp/sob, n/v/d, calf pain/edema. Vital Signs Temp 97.8 F 06/16/18 09:09 Pulse 65 06/16/18 09:09 Resp 20 06/16/18 09:09 BP 189/82 H 06/16/18 09:09 Pulse Ox 100 06/15/18 21:00 Intake & Output 06/15/18 06/15/18 06/16/18 11:59 23:59 11:59 Intake Total 2255 1450 1500 Output Total 575 Balance 1680 1450 1500 Weight 144 lb Intake: IV 1905 1250 1500 Lactated Ringers Solution 1125 1250 1500 1,000 ml @ 125 mls/hr IV ASDIR JEFF Rx#: [id number] Normal Saline - 1,000 ml 780 @ 50 mls/hr IV ASDIR JEFF Rx#:[id number] IVPB 350 200 Oral 0 Output: Gastric Drainage 175 Urine 400 Void 400 Other: Voiding Method Urinal Urinal # Unmeasured Voids Void 200 Bowel Movement No No Yes: liquid # Bowel Movements 3 Height 5 ft 10 in Body Mass Index (BMI) 20.6 CBC, BMP 06/16/18 07:26 Gen: awake, alert, nad Resp: cta b/l CV: rrr, s1s2 Abdo: soft, nt/nd, Dressing removed, incision c/d/i, larry in place, no erythema or drainage. A/P: 72 y/o M w/ PMHx CAD s/p STEMI with ANNIKA to LAD (10/22/17), Parkinsons, htn, dm (well controlled), POD 2, s/p repair of incarcerated supraumbilical hernia. Doing well this morning. VSS, afebrile -D/c later today d/w attending Dr Infante
[2018-06-16 09:38] LABS: ANION GAP 6 MMOL/L (8-16); BLOOD UREA NITROGEN 11 mg/dL (7-18); CALCIUM 7.7 mg/dL (8.5-10.1); CHLORIDE 104 mmol/L (98-107); CO2 31 mmol/L (21-32); CREATININE 0.9 mg/dL (0.55-1.3); GLUCOSE,RANDOM 88 mg/dL (74-106); MAGNESIUM 2.3 mg/dL (1.8-2.4); PHOSPHOROUS 1.5 mg/dL (2.5-4.9); POTASSIUM 3.7 mmol/L (3.5-5.1); SODIUM 140 mmol/L (136-145)
[2018-06-16] MEDS ORDERED: OXYBUTYNIN CHLORIDE 5 MG TABLET PO SCH (10:00)
[2018-06-16] MEDS: LISINOPRIL 10 MG TABLET (FP) PO SCH (10:04)
[2018-06-16] MEDS: ISOSORBIDE MONONITRATE 30 MG TAB.SR.24H (FP) PO SCH (10:04)
[2018-06-16] MEDS: HEPARIN NA (PORCINE) 5,000 UNITS/ML 1ML VIAL SQ SCH (10:04)
[2018-06-16] MEDS: ASPIRIN 81 MG CHEWABLE TABLETS PO SCH (10:04)
[2018-06-16] MEDS: TICAGRELOR 90 MG TABLET PO SCH (10:04)
--- NOTE | 2018-06-16 14:12 | PN ---
Teaching Attending Note Name of Resident: Nohemi Morfin ATTENDING PHYSICIAN STATEMENT I saw and evaluated the patient. I reviewed the resident's note and discussed the case with the resident. I agree with the resident's findings and plan as documented with exceptions below. SUBJECTIVE: Patient seen and examined. some pain around incision site, feels well, tolerating diet, passing flatus, also reports BM and ambulating well. OBJECTIVE: Vital Signs Period Temp Pulse Resp BP Sys/Hill Pulse Ox Last 24 Hr 97.8 F-99.4 F 59-65 18-20 148-189/74-92 100 Intake & Output 06/13/18 06/14/18 06/15/18 06/16/18 23:59 23:59 23:59 23:59 Intake Total 2430 3705 2004 Output Total 1000 1575 575 Balance -3946 356 9015 2004 Weight 160 lb 144 lb 1 oz 144 lb General: sitting in bed in no acute distress Chest: CTAB, no rales or wheezing Abdomen:some tenderness around the incision site. positive bowel sounds, NT otherwise, no voluntary or involuntary guarding or rigidity, positive bowel sounds Extremities: no edema Home Medications Medication Instructions Recorded Aspirin 81 mg PO DAILY 06/13/18 Atorvastatin Ca [Lipitor] 40 mg PO HS 06/13/18 Isosorbide Mononitrate [Imdur -] 30 mg PO DAILY 06/13/18 Lisinopril 10 mg PO DAILY 06/13/18 Metoprolol Succinate [Toprol Xl] 100 mg PO TID 06/13/18 Ticagrelor [Brilinta -] 90 mg PO BID 06/13/18 Carbidopa/Levodopa 25/100 1 tab PO TID 06/14/18 Entacapone 200 mg PO TID 06/14/18 Gabapentin 1 tab PO TID 06/14/18 Glipizide 2.5 mg PO DAILY 06/14/18 Omeprazole 20 mg PO DAILY 06/14/18 Oxybutynin Chloride 1 tab PO DAILY 06/14/18 Tamsulosin HCl [Flomax] 1 tab PO HS 06/14/18 Acetaminophen [Tylenol .Regular 650 mg PO Q6H PRN tablet 06/16/18 Strength -] Laboratory Results - last 24 hr 06/15/18 06/15/18 06/16/18 17:03 21:12 06:12 WBC RBC Hgb Hct MCV MCH MCHC RDW Plt Count MPV Sodium Potassium Chloride Carbon Dioxide Anion Gap BUN Creatinine Creat Clearance w eGFR POC Glucometer 96 124 99 Random Glucose Calcium Phosphorus Magnesium 06/16/18 06/16/18 06/16/18 07:26 07:26 11:18 WBC 6.2 RBC 4.72 Hgb 13.5 Hct 40.7 MCV 86.3 MCH 28.6 MCHC 33.1 RDW 14.7 Plt Count 152 D MPV 8.9 Sodium 140 Potassium 3.7 Chloride 104 Carbon Dioxide 31 Anion Gap 6 L BUN 11 Creatinine 0.9 Creat Clearance w eGFR > 60 POC Glucometer 120 Random Glucose 88 Calcium 7.7 L Phosphorus 1.[address] A/P results reviewed ASSESSMENT AND PLAN: 72 yom with PMHx of CAD s/p STEMI with ANNIKA to LAD 10/2017, CHF, dementia, parkinson's admitted with SBO and incarcerated supraumbilical hernia s/p operative repair. -Small bowel obstruction with incarcerated supraumbilical hernia s/p repair -CAD s/p LAD ANNIKA 10/2017 for STEMI -Dementia -Parkinson's disease Plan: Doing well post op, s/p BM. tolerating diet well. Discussed with surgery, ok for d.c home VNS arranged resume home meds D/c home with outpatient PCP and surgery follow up. Plan discussed with patient in detail, all questions answered.
--- NOTE | 2018-06-16 14:18 | DS ---
Physical Exam: SUBJECTIVE: Patient seen and examined by me at bedtime No acute events overnight S/P repair of incarcerated supraumbilical hernia POD #2 Patient reports adequate pain control Patient passing flatus and has had 3 bowel movements Patient tolerating diet Denies any fever, chills, nausea, vomiting, chest pain, palpitations, headaches , dizziness, diarrhea, constipation OBJECTIVE: Vital Signs Period Temp Pulse Resp BP Sys/Hill Pulse Ox Last 24 Hr 97.8 F-99.4 F 59-65 18-20 148-189/74-92 100 PHYSICAL EXAM GENERAL: The patient is awake, alert, and oriented to person and place but not time, in no acute distress. EYES: PERRL, sclera anicteric, conjunctiva clear. ENT: Oropharynx clear without exudates, moist mucous membranes. NECK: Trachea midline, full range of motion, supple. LUNGS: CTA b/l with no wheezes, no crackles, no accessory muscle use. HEART: RRR, normal S1 and S2 without murmur, rub or gallop. ABDOMEN: Soft, mild tenderness upon palpation of mid abdomen, mildly distended, hypoactive bowel sounds EXTREMITIES: No edema. NEUROLOGICAL: Cranial nerves II through XII grossly intact. Normal speech LABS Laboratory Results CBC, BMP 06/16/18 07:26 06/16/18 07:26 PRE-HOSPITAL COURSE: Patient is a 72 year old male with a PMHx of Parkinsons Disease, umbilical hernia (>10 yrs), CAD s/p STEMI with ANNIKA to LAD, HTN, BPH, NIDDMII who presented for one week history of abdominal pain associated with nausea and vomiting. CT done and revealed obstructed umbilical hernia. Patient was then admitted for to be taken to the OR for repair and further monitoring. HOSPITAL COURSE: Throughout hospitalization, patient had repair of incarcerated supraumbilical hernia and tolerated procedure well. He had adequate pain control with Morphine and Tylenol. We started him on liquid diet then advanced to regular diet and tolerated well. He passed flatus and had bowel movements. He initially presented with acute kidney injury but resolved with fluids. Patient was surgically cleared and now patient is medically cleared. Patient to be discharged with VNS. Date of Admission:06/13/18 Date of Discharge: 06/16/18 Minutes to complete discharge: 45 Discharge Summary Reason For Visit: UMBILICAL HERNIA WITH OBSTRUCTION Current Active Problems DEMETRIO (acute kidney injury) (Acute) CAD (coronary artery disease) (Acute) Diabetes (Acute) HTN (hypertension) (Acute) Hyperbilirubinemia (Acute) Hypokalemia (Acute) Parkinsons disease (Acute) Umbilical hernia with obstruction (Acute) Condition: Stable - Instructions Diet, Activity, Other Instructions: Dr. Infante Discharge Instructions Dear ABDELRAHMAN KRAMER, Post Operative Instructions Physical activity Resume your normal everyday activity as tolerated no heavy lifting or exercise until seen by your surgeon. You may walk unlimited amounts of and climb stairs. You may resume driving the car when you feel safe and comfortable behind the wheel. Wound care Keep area clean and dry. May shower, NO BATHS or submerging your incision in water. Diet There are no dietary restrictions. Eat healthy, high-fiber foods. Drink 6 to 8 glasses of liquid each day. This will assist in keeping your bowels are regular. Pain management You may take Tylenol or acetaminophen . Call Dr. Infante for any of the following: Severe pain not relieved by medication Fever of 101 or higher Excessive bleeding or drainage on dressing Inability to urinate Call the office at [phone] for a post operative appointment in 7 - 10 days for staple removal and further care. MEDICATIONS: -Please resume your home medications. Follow up with your primary care doctor in 1 week and advise blood work to check your kidneys (Basic Metabolic panel) in 1-2 weeks. Please discuss with your doctor. Referrals: Fred Infante MD [Staff Physician] - Sharad Ames MD [Non Staff, Medical] - Disposition: VNS/HOME HEALTH CARE - Home Medications Comprehensive Discharge Medication List: Ambulatory Orders Aspirin 81 mg PO DAILY 06/13/18 Atorvastatin Ca [Lipitor] 40 mg PO HS 06/13/18 Isosorbide Mononitrate [Imdur -] 30 mg PO DAILY 06/13/18 Lisinopril 10 mg PO DAILY 06/13/18 Metoprolol Succinate [Toprol Xl] 100 mg PO TID 06/13/18 Ticagrelor [Brilinta -] 90 mg PO BID 06/13/18 Carbidopa/Levodopa 25/100 1 tab PO TID 06/14/18 Entacapone 200 mg PO TID 06/14/18 Gabapentin 1 tab PO TID 06/14/18 Glipizide 2.5 mg PO DAILY 06/14/18 Omeprazole 20 mg PO DAILY 06/14/18 Oxybutynin Chloride 1 tab PO DAILY 06/14/18 Tamsulosin HCl [Flomax] 1 tab PO HS 06/14/18 This patient is new to me today: Yes Date on this admission: 06/16/18 Emergency Visit: No Critical Care patient: No - Discharge Referral Referred to [facility] No
[2018-06-16] MEDS ORDERED: METOPROLOL TARTRATE 50 MG TABLET (FP) PO ONE (16:04)
--- NOTE | 2018-06-16 17:05 | PATH ---
Surgical Pathology Report Patient Name: ABDELRAHMAN KRAMER [facility]. Rec. #: [id number] /Age/Gender: 1945 (Age: 72) / F Account: [id number] Location: EMERGENCY ROOM Taken: 06/14/2018 Received: 06/15/2018 Reported: 06/16/2018 Physicians: MD Aquilino Mcclendon M.D. Specimen(s) Received HERNIA SAC Clinical History Umbilical hernia with stricture Final Diagnosis HERNIA SAC, UMBILICAL HERNIA REPAIR: FIBROMEMBRANOUS AND FIBROADIPOSE TISSUE COMPATIBLE WITH HERNIA SAC. Electronically Signed Penny Clifton M.D. Gross Description Received in formalin labeled "hernia sac," is a 3.1 x 3.0 x 0.5 cm aggregate of arriaza hi portions of fibromembranous tissue with minimal attached fat, consistent with a hernia sac. Powder Carrier sections are submitted in one cassette. /06/15/2018 saudi06/15/2018
[2018-06-16 17:11] VITALS: BP 147/90; PULSE 68; TEMP 98
--- NOTE | 2018-06-17 09:35 | OP ---
DATE OF OPERATION: 06/14/2018 PREOPERATIVE DIAGNOSIS: Incarcerated ventral hernia. POSTOPERATIVE DIAGNOSIS: Incarcerated ventral hernia. PROCEDURE: Repair of incarcerated ventral hernia. SURGEON: Fred Infante MD [employer]ETERIN[employer]OCK INSPECTOR: Yarely Whyte PA-C ANESTHESIA: General. OPERATIVE FINDINGS: There was an incarcerated but not strangulated ventral hernia above the umbilicus. The defect in the abdominal wall was approximately 2 cm and a loop of bowel which had been reduced was viable, and the rest of the findings were unremarkable. DESCRIPTION OF PROCEDURE: The patient was placed on the operating table in the supine position, and after the induction of general anesthesia, the patients abdomen was prepped with ChloraPrep and draped in sterile fashion. A time-out was taken, and then, an incision was made over the palpable hernia in the abdominal wall. This was taken down through skin and subcutaneous tissue, and blunt dissection continued until the sac was totally dissected from the subcutaneous tissue. Once it was confirmed that this was sac, it was entered, and the previously noted findings were observed. The redundant sac was excised using electrocautery and sent for pathological examination. The bowel was brought up into the incision where the loop of incarcerated bowel was found to be totally viable. It was also traced distally and proximally for several centimeters without evidence of abnormal pathology. The bowel was then returned to the peritoneal cavity, and the hernia repaired by mobilizing the fascia circumferentially from the subcutaneous tissue, and the defect closed with continuous 0 Ti-Cron suture. Hemostasis was checked for and noted to be good, and then, the wound was copiously irrigated with sterile saline. Hemostasis was again verified, and then, the redundant sac that was left was closed over the repair with interrupted 2-0 Vicryl, the deep dermis with interrupted 3-0 Vicryl, and the skin edges with surgical larry. Dry sterile dressings were placed, and the procedure terminated at this point, and the patient roused from general anesthesia and transferred to the post-anesthesia care unit in stable condition, awake and alert. ESTIMATED BLOOD LOSS: 20 mL. REPLACEMENTS: Crystalloid. DRAINS: None. SPECIMENS: Hernia sac to Pathology. I, Fred Infante, was physically present in the operating room from the time the patient was placed on the operating table until he was transferred to the post-anesthesia care unit in my accompaniment. MD LILLIE Mcclendon/[id number]
== END 2018-06-16 17:14 | disposition home health service (06) | DRG 354 ==
LOC: JER 12:45 → EDSEX 12:45 → JERBED 15:57 → J8W 23:52 → J4W 06-14 19:52 → J6S 06-15 18:42
PROVIDERS: ADMIT Internal Medicine; ATTEND Hospitalist
PROC: 0WQF0ZZ Repair Abdominal Wall, Open Approach (ICD-10-PCS; principal; 2018-06-14 18:00)
DX: K43.6 Other and unspecified ventral hernia with obstruction, without gangrene (principal); N17.9 Acute kidney failure, unspecified; I50.22 Chronic systolic (congestive) heart failure; G20 Parkinson's disease; I25.10 Atherosclerotic heart disease of native coronary artery without angina pectoris; I25.2 Old myocardial infarction; E87.6 Hypokalemia; I11.0 Hypertensive heart disease with heart failure; F02.80 Dementia in other diseases classified elsewhere, unspecified severity, without behavioral disturbance, psychotic disturbance, mood disturbance, and anxiety
CPT/HCPCS: 36415; 71045-TC-FY; 74018-TC-FY; 74176-TC; 80048; 80053; 80076; 82962; 83605; 83735; 84100; 85025; 85027; 85610; 85730; 86850; 86900; 86901; 88302-TC; 93005; 93010; 94760; 97116-GP; 97161-GP; 99285-25; J0131; J1644; J7030

== ENCOUNTER 2018-06-22 09:29 | Emergency (ER) | payer OTHER ==
--- NOTE | 2018-06-22 09:38 | PDOC ---
History of Present Illness - General Chief Complaint: Pain Stated Complaint: ABD PAIN Time Seen by Provider: 06/22/18 09:38 - History of Present Illness Initial Comments: 06/22/18 09:40 Mr. Camejo is a 72 yo male w/ pmh of DM, CAD w/ stents on Ticagrelor, Parkinson' s, umbilical hernia repaired 06/14 (Dr. Infante operating) and discharged from this hospital 06/16 who presents for evaluation of bleeding from incision site. Patient reports he had previously had golf-ball sized swelling under his incision site that he has now noticed to have disappeared. Denies any pain however reports blood began to come from incision site while urinating this morning. Mr. Camejo otherwise has no complaints at this time however thought he should get checked out. The patient denies chest pain, shortness of breath, headache and dizziness. Denies fever, chills, nausea, vomit, diarrhea and constipation. Denies dysuria, frequency, urgency and hematuria. Past History - Past Medical History Allergies/Adverse Reactions: Allergies Allergy/AdvReac Type Severity Reaction Status Date / Time No Known Allergies Allergy Verified 06/22/18 09:44 Home Medications: Ambulatory Orders Aspirin 81 mg PO DAILY 06/13/18 Atorvastatin Ca [Lipitor] 40 mg PO HS 06/13/18 Isosorbide Mononitrate [Imdur -] 30 mg PO DAILY 06/13/18 Lisinopril 10 mg PO DAILY 06/13/18 Metoprolol Succinate [Toprol Xl] 100 mg PO TID 06/13/18 Ticagrelor [Brilinta -] 90 mg PO BID 06/13/18 Carbidopa/Levodopa 25/100 1 tab PO TID 06/14/18 Entacapone 200 mg PO TID 06/14/18 Gabapentin 1 tab PO TID 06/14/18 Glipizide 2.5 mg PO DAILY 06/14/18 Omeprazole 20 mg PO DAILY 06/14/18 Oxybutynin Chloride 1 tab PO DAILY 06/14/18 Tamsulosin HCl [Flomax] 1 tab PO HS 06/14/18 Acetaminophen [Tylenol .Regular Strength -] 650 mg PO Q6H PRN tablet 06/16/18 Cardiac Disorders: (FL,CAD,S/P STENTS X 2) CVA: No COPD: No Diabetes: Yes GI Disorders: Yes (hernia) HTN: Yes Hypercholesterolemia: Yes Thyroid Disease: (PARKINSONS) - Immunization History Immunization Up to Date: Yes - Suicide/Smoking/Psychosocial Hx Smoking History: Never smoked Have you smoked in the past 12 months: No Hx Alcohol Use: No Drug/Substance Use Hx: No Substance Use Type: None Review of Systems - Review of Systems Comments:: 06/22/18 09:41 GENERAL/CONSTITUTIONAL: No fever or chills. No weakness. HEAD, EYES, EARS, NOSE AND THROAT: No change in vision. No ear pain or discharge. No sore throat. CARDIOVASCULAR: No chest pain or shortness of breath RESPIRATORY: No cough, wheezing, or hemoptysis. GASTROINTESTINAL: +Blood from incision site as reported. No nausea, vomiting, diarrhea or constipation. GENITOURINARY: No dysuria, frequency, or change in urination. MUSCULOSKELETAL: No joint or muscle swelling or pain. No neck or back pain. SKIN: No rash NEUROLOGIC: No headache, vertigo, loss of consciousness, or change in strength/ sensation. ENDOCRINE: No increased thirst. No abnormal weight change HEMATOLOGIC/LYMPHATIC: No anemia, easy bleeding, or history of blood clots. ALLERGIC/IMMUNOLOGIC: No hives or skin allergy. *Physical Exam - Physical Exam Comments: 06/22/18 09:42 GENERAL: Awake, alert, and fully oriented, in no acute distress HEAD: No signs of trauma, normocephalic, atraumatic EYES: PERRLA, EOMI, sclera anicteric, conjunctiva clear ENT: Auricles normal inspection, hearing grossly normal, nares patent, oropharynx clear without exudates. Moist mucosa NECK: Normal ROM, supple, no lymphadenopathy, JVD, or masses LUNGS: No distress, speaks full sentences, clear to auscultation bilaterally HEART: Regular rate and rhythm, normal S1 and S2, no murmurs, rubs or gallops, peripheral pulses normal and equal bilaterally. ABDOMEN: +Well healing abdominal incision site noted closed with larry. Minor blood seeping from wound site. Soft, nontender, normoactive bowel sounds. No guarding, no rebound. No masses EXTREMITIES: Normal inspection, Normal range of motion, no edema. No clubbing or cyanosis. NEUROLOGICAL: Cranial nerves II through XII grossly intact. Normal speech, normal gait, no focal sensorimotor deficits SKIN: Warm, Dry, normal turgor, no rashes or lesions noted. Medical Decision Making - Medical Decision Making 06/22/18 10:03 Mr. Camejo is a 72 yo male w/ pmh as described who presents for evaluation of bleeding from incision site. Patient extremely well appearing at this time and concern for complication from surgery low. Will consult surgeon for guidance and likely DC for further outpatient follow-up. 06/22/18 11:38 Patient continues to be well appearing. Evaluated bedside by surgeon who will follow-up in office and believes presentation 2/2 blood thinners. No concern for acute process at this time. Discharging to home. *DC/Admit/Observation/Transfer Diagnosis at time of Disposition: Postoperative bleeding from incision - Discharge Dispostion Disposition: HOME - Referrals Referrals: Sharad Ames MD [Primary Care Provider] - Fred Infante MD [Staff Physician] - - Patient Instructions Printed Discharge Instructions: DI for Postoperative Pain Additional Instructions: You were evaluated today in the ER for your bleeding from surgical site. No concerning findings were found at this time and we consulted with Dr. Infante who also examined you. We do not believe anything emergent is occurring at this time. Please follow-up outpatient Thursday or Thursday with Dr. Infante as discussed. Return to ER if any fevers, chills, increase in pain, or other concerning symptoms. - Post Discharge Activity
[2018-06-22 09:44] VITALS: BP 167/89; PULSE 55; TEMP 98.4; BMI 20.6
--- NOTE | 2018-06-22 10:39 | PDOC ---
Attending Attestation - Resident Resident Name: Marek Dougherty - ED Attending Attestation I have performed the following: I have examined & evaluated the patient, The case was reviewed & discussed with the resident, I agree w/resident's findings & plan, Exceptions are as noted - HPI HPI: 06/22/18 10:34 72 M with h/o DM, CAD/stents on brilinta and aspirin, Parkinson's, recent umbilical hernia repair 06/14, presenting to ED with bleeding from surgical incision. Pt states that he has felt some pressure under the incision since his surgery. Denies any pain. Today, as he got up to urinate, he noticed a clot pass from the bottom of the incision, followed by some bleeding, which has since resolved. Pt denies any other drainage, no pus. No increased redness or swelling. Denies any F/C. Denies N/V. Denies constipation, is having normal BMs. - Physicial Exam PE: 06/22/18 10:36 "GENERAL: Awake, alert, and fully oriented, in no acute distress. HEAD: No signs of trauma EYES: PERRLA, EOMI, sclera anicteric, conjunctiva clear ENT: Auricles normal inspection, hearing grossly normal, nares patent, oropharynx clear without exudates. Moist mucosa NECK: Nontender, no stepoffs, Normal ROM, supple, no lymphadenopathy, JVD, or masses LUNGS: Breath sounds equal, clear to auscultation bilaterally. No wheezes, and no crackles HEART: Regular rate and rhythm, normal S1 and S2, no murmurs, rubs or gallops ABDOMEN: + surgical incision with larry in place, healing well, no erythema or induration, no active bleeding, no drainage, abdomen Soft, nontender, normoactive bowel sounds. No guarding, no rebound. No masses EXTREMITIES: Normal range of motion, no edema. No clubbing or cyanosis. No cords, erythema, or tenderness NEUROLOGICAL: Cranial nerves II through XII intact. 5/5 strength and sensation in all extremities, Normal speech, normal gait, normal cerebellar function SKIN: Warm, Dry, normal turgor, no rashes or lesions noted. - Medical Decision Making 06/22/18 10:37 72 M s/p hernia repair 1 week ago, with passage of clot and blood from surgical site today. Likely evacuation of hematoma. Now with hemostasis. Surgical site appears to be healing well, with no s/s infection or active bleeding. Pt HD stable and well appearing, no evidence of obstruction. - Discuss with pt's surgeon, Dr. Infante 06/22/18 11:35 Dr. Infante at bedside to evaluate pt. Pt cleared for DC Pt is well appearing, with normal vitals. Clinically stable for DC at this time. I discussed the physical exam findings, ancillary test results and final diagnoses with the patient. I answered all of the patient's questions. The patient was satisfied with the care received and felt comfortable with the discharge plan and treatment plan. The patient agrees to follow up with the primary care physician within 24-72 hours.
== END 2018-06-22 11:49 | disposition home or self-care (01) ==
LOC: JER 09:29
DX: L76.22 Postprocedural hemorrhage of skin and subcutaneous tissue following other procedure (principal); I25.10 Atherosclerotic heart disease of native coronary artery without angina pectoris; I10 Essential (primary) hypertension; Z95.5 Presence of coronary angioplasty implant and graft; I25.2 Old myocardial infarction; E78.00 Pure hypercholesterolemia, unspecified; E11.9 Type 2 diabetes mellitus without complications; Z79.84 Long term (current) use of oral hypoglycemic drugs; Z79.01 Long term (current) use of anticoagulants; G20 Parkinson's disease
CPT/HCPCS: 99282-25

== ENCOUNTER 2022-06-19 11:37 | Emergency (ER) | payer BC, OTHER ==
[2022-06-19 11:52] VITALS: TEMP 98.6; BMI 25.8
[2022-06-19] MEDS ORDERED: SODIUM CHLORIDE 0.9% 500 ML INFUS.BAG IV ONE (12:42)
[2022-06-19 13:57] LABS: BASO % 0.5 % (0-2.0); EOS % 0.1 % (0-4.5); HEMOGLOBIN 12.4 GM/dL (11.7-16.9); LYMPH % 32.8 % (8-40); MCH 27.1 pg (25.7-33.7); MCHC 32.8 g/dl (32.0-35.9); MEAN CELL VOLUME 82.6 fl (80-96); MONO % 15.5 % (3.8-10.2); NEUT % 51.1 % (42.8-82.8); PLATELET COUNT 149 10^3/uL (134-434); RDW 16.1 % (11.9-15.9); WHITE BLOOD COUNT 4.1 K/mm3 (4.0-10.0)
[2022-06-19 14:06] LABS: BLOOD UREA NITROGEN 52.5 mg/dL (7-18); CALCIUM 8.3 mg/dL (8.5-10.1)
[2022-06-19 14:09] LABS: CREATININE 3.9 mg/dL (0.55-1.3)
[2022-06-19 14:11] LABS: BILIRUBIN,TOTAL 0.4 mg/dL (0.2-1); TOT PROT 7.9 g/dl (6.4-8.2)
[2022-06-19 15:08] VITALS: BP 104/56; PULSE 78; RESP 19
== END 2022-06-19 15:09 | disposition left against medical advice (07) ==
LOC: JER 11:37
DX: N17.9 Acute kidney failure, unspecified (principal); R03.1 Nonspecific low blood-pressure reading
CPT/HCPCS: 36415; 80053; 80061; 85025; 93005; 93010; 99284-25